=== PATIENT | male | born 1955 | race Caucasian/White ===

== ENCOUNTER 2020-01-31 18:55 | Emergency (ER) | payer MEDICARE, OTHER ==
--- NOTE | 2020-01-31 19:47 | ER Document Report ---
ED Medical Screen (RME) - General Chief Complaint: Medical Clearance Stated Complaint: MEDICAL CLEARANCE/[place] Time Seen by Provider: 01/31/20 19:40 Mode of Arrival: Ambulatory Information source: Patient Notes: HPI; 64-year-old male past medical history significant for depression, anxiety, ADD, bipolar states that he went to [place] via the police to get assistance with his mental health issues. He states while he was there they checked his blood sugar and told him it was high and referred him to the ER. Patient states he had a phone visit with his therapist today who got concerned about some of the things he was talking about and had the police come pick him up and taken to [place]. He denies any suicidal homicidal ideation. States he is never been suicidal in the past. States "I just want to feel better" PE: Alert and oriented x3. Flat affect. Lungs: Clear to auscultation without rales, rhonchi, wheezes. Heart: Regular rate rhythm without murmurs, rubs, gallops. Answers questions appropriately follows directions without any difficulty. Denies suicidal homicidal ideation. I have greeted and performed a rapid initial assessment of this patient. A comprehensive ED assessment and evaluation of the patient, analysis of test results and completion of the medical decision making process will be conducted by additional ED providers. I have specifically instructed the patient or family members with the patient to immediately return to any nursing staff should anything change in the patient's condition or with their chief complaint. TRAVEL OUTSIDE OF THE [place] IN LAST 30 DAYS: No Physical Exam - Vital signs Vitals: Temp Pulse Resp BP Pulse Ox 98.4 F 90 16 123/58 L 95 01/31/20 19:19 01/31/20 19:19 01/31/20 19:19 01/31/20 19:19 01/31/20 19:19 Course - Vital Signs Vital signs: Temp Pulse Resp BP Pulse Ox 98.4 F 90 16 123/58 L 95 01/31/20 19:19 01/31/20 19:19 01/31/20 19:19 01/31/20 19:19 01/31/20 19:19
[2020-01-31] MEDS ORDERED: RINGERS SOLUTION,LACTATED 1,000 ML IV ONE (20:28)
[2020-01-31 20:44] LABS: ABSOLUTE BASOPHILS # (AUTO) 0.1 10^3/uL (0.0-0.2); ABSOLUTE EOSINOPHILS # (AUTO) 0.1 10^3/uL (0.0-0.6); ABSOLUTE LYMPHOCYTES (AUTO) 2.3 10^3/uL (0.5-4.7); ABSOLUTE NEUT (AUTO) 5.9 10^3/uL (1.7-8.2); BASOPHILS % (AUTO) 0.8 % (0-2); EOSINOPHILS % (AUTO) 0.9 % (0-6); HEMATOCRIT 42.2 % (37.9-51.0); HEMOGLOBIN 14.8 g/dL (13.5-17.0); LYMPHOCYTES % (AUTO) 24.8 % (13-45); MEAN CORPUSCULAR HEMOGLOBIN 30.1 pg (27.0-33.4); MEAN CORPUSCULAR HGB CONC 35.1 g/dL (32.0-36.0); MEAN CORPUSCULAR VOLUME 86 fl (80-97); MONOCYTES % (AUTO) 10.5 % (3-13); PLATELET COUNT 282 10^3/uL (150-450); RED BLOOD COUNT 4.92 10^6/uL (4.35-5.55); RED CELL DISTRIBUTION WIDTH 12.6 % (11.5-14.0); TOTAL CELLS COUNTED % (AUTO) 100 %; WHITE BLOOD COUNT 9.4 10^3/uL (4.0-10.5)
[2020-01-31 20:48] LABS: APPEARANCE,URINE CLEAR; BILIRUBIN,URINE NEGATIVE (NEGATIVE); COLOR,URINE YELLOW; GLUCOSE, URINE >=500 mg/dL (NEGATIVE); KETONES,URINE TRACE mg/dL (NEGATIVE); LEUKOCYTE ESTERASE,URINE NEGATIVE (NEGATIVE); NITRITE,URINE NEGATIVE (NEGATIVE); PROTEIN,URINE NEGATIVE (NEGATIVE); URINE SPECIFIC GRAVITY 1.029; UROBILINOGEN,URINE NEGATIVE mg/dL (<2.0)
--- NOTE | 2020-01-31 20:54 | EKG REPORT ---
SEVERITY:- ABNORMAL ECG - SINUS RHYTHM LEFT ANTERIOR FASCICULAR BLOCK : Confirmed by: Xuan Rosenthal 31-Jan-2020 20:53:26
[2020-01-31 21:03] LABS: ALBUMIN 4.4 g/dL (3.5-5.0); ALKALINE PHOSPHATASE 106 U/L (38-126); ANION GAP 9 (5-19); ASPARTATE AMINO TRANSFERASE 27 U/L (17-59); BILIRUBIN,DIRECT 0.3 mg/dL (0.0-0.4); BILIRUBIN,TOTAL 0.6 mg/dL (0.2-1.3); BLOOD UREA NITROGEN 18 mg/dL (7-20); CALCIUM 9.7 mg/dL (8.4-10.2); CARBON DIOXIDE 28 mmol/L (22-30); CHLORIDE 94 mmol/L (98-107); POTASSIUM 4.4 mmol/L (3.6-5.0); TOTAL PROTEIN 7.3 g/dL (6.3-8.2)
[2020-01-31 21:09] LABS: ACETAMINOPHEN < 10 ug/mL (10-30); ALCOHOL < 10 mg/dL (NONE DETECTED); GLUCOSE 417 mg/dL (75-110); SALICYLATE < 1.0 mg/dL (2.0-20.0)
[2020-01-31 21:10] LABS: URINE AMPHETAMINES SCREEN NEGATIVE; URINE BARBITURATES SCREEN NEGATIVE; URINE BENZODIAZEPINES SCREEN NEGATIVE; URINE COCAINE SCREEN NEGATIVE; URINE MARIJUANA (THC) SCREEN NEGATIVE; URINE METHADONE SCREEN NEGATIVE; URINE PHENCYCLIDINE SCREEN NEGATIVE
[2020-01-31 21:34] LABS: VENOUS BLOOD BASE EXCESS 0.8 mmol/L; VENOUS BLOOD HCO3 26.6 mmol/L (20-32); VENOUS BLOOD PCO2 47.1 mmHg (35-63); VENOUS BLOOD PH 7.37 (7.30-7.42)
--- NOTE | 2020-01-31 22:05 | ER Document Report ---
ED General - General Chief Complaint: High Blood Sugar Stated Complaint: MEDICAL CLEARANCE/LAUREN Time Seen by Provider: 01/31/20 19:40 Mode of Arrival: Ambulatory Information source: Patient Notes: ED Medical Screen ([facility]) - General Chief Complaint: Medical Clearance Stated Complaint: MEDICAL CLEARANCE/LAUREN Time Seen by Provider: 01/31/20 19:40 Mode of Arrival: Ambulatory Information source: Patient Notes: HPI; 64-year-old male past medical history significant for depression, anxiety, ADD, bipolar states that he went to [place] via the police to get assistance with his mental health issues. He states while he was there they checked his blood sugar and told him it was high and referred him to the ER. Patient states he had a phone visit with his therapist today who got concerned about some of the things he was talking about and had the police come pick him up and taken to [place]. He denies any suicidal homicidal ideation. States he is never been suicidal in the past. States "I just want to feel better" PE: Alert and oriented x3. Flat affect. Lungs: Clear to auscultation without rales, rhonchi, wheezes. Heart: Regular rate rhythm without murmurs, rubs, gallops. Answers questions appropriately follows directions without any difficulty. Denies suicidal homicidal ideation. MY NOTES 64-year-old male arrives with chief complaint of high blood sugar and mental health issues. 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 He advises for years he was on Adderall Klonopin and SSRIs. This was until Karen Quezada took him off of these particular medications several months ago and now his life has felt very nonproductive. He was told around 6 months ago he was prediabetic and therefore has been drinking a lot of Coca-Cola's and his sugars were found to be in the mid 400s today. He denies any chest pain denies any suicidal or homicidal ideation. Patient reports he has no purpose in life. He says his life is on a downward spiral. Patient reports his teeth were worked on by a local dentist but was told he should have many of them pulled out. He was placed on amoxicillin several weeks ago. Patient reports the Klonopin he used to take was 1 mg 3 times daily for 10 years. TRAVEL OUTSIDE OF THE [place] IN LAST 30 DAYS: No - HPI Onset: This afternoon Onset/Duration: Persistent Quality of pain: No pain Severity: None Pain Level: Denies Associated symptoms: Weakness, Other - Polyuria and intensive thirst for weeks Exacerbated by: Denies Relieved by: Denies Similar symptoms previously: No Recently seen / treated by doctor: No - Related Data Allergies/Adverse Reactions: peanut Allergy (Verified 01/31/20 19:48) Past Medical History - General Information source: Patient - Social History Smoking Status: Former Smoker Cigarette use (# per day): No Chew tobacco use (# tins/day): No Smoking Education Provided: No Frequency of alcohol use: None Drug Abuse: None Lives with: Family Family History: Reviewed & Not Pertinent Patient has suicidal ideation: No Patient has homicidal ideation: No Review of Systems - Review of Systems Constitutional: See HPI, Malaise, Weakness, Recent illness EENT: See HPI, Other - dry mouth Cardiovascular: No symptoms reported Respiratory: No symptoms reported Gastrointestinal: No symptoms reported Genitourinary: See HPI, Frequency Male Genitourinary: No symptoms reported Musculoskeletal: No symptoms reported Skin: No symptoms reported Hematologic/Lymphatic: No symptoms reported Neurological/Psychological: See HPI, Depression Physical Exam - Vital signs Vitals: Temp Pulse Resp BP Pulse Ox 98.4 F 90 16 123/58 L 95 01/31/20 19:19 01/31/20 19:19 01/31/20 19:19 01/31/20 19:19 01/31/20 19:19 Interpretation: Normal - General General appearance: Alert - HEENT Head: Normocephalic, Atraumatic Eyes: Pale conjunctiva Conjunctiva: Normal Cornea: Normal Extraocular movements intact: Yes Eyelashes: Normal Pupils: PERRL Sinus: Normal Nasal: Normal Mouth/Lips: Normal Mucous membranes: Dry Pharynx: Normal Neck: Normal - Respiratory Respiratory status: No respiratory distress Chest status: Nontender Breath sounds: Normal Chest palpation: Normal - Cardiovascular Rhythm: Regular Heart sounds: Normal auscultation Murmur: No - Abdominal Inspection: Normal Distension: No distension Bowel sounds: Normal Tenderness: Nontender Organomegaly: No organomegaly - Rectal Prostate: Other - deferred - Genitourinary Scrotum: Other - deferred - Back Back: Normal - Extremities General upper extremity: Normal inspection General lower extremity: Normal inspection - Neurological Neuro grossly intact: Yes Cognition: Normal Orientation: AAOx4 [place] Coma Scale Eye Opening: Spontaneous [place] Coma Scale Verbal: Oriented [place] Coma Scale Motor: Obeys Commands [place] Coma Scale Total: 15 Speech: Normal Motor strength normal: LUE, RUE, LLE, RLE Sensory: Normal - Psychological Associated symptoms: Normal affect - Skin Skin Temperature: Warm Skin Moisture: Dry Course - Vital Signs Vital signs: Temp Pulse Resp BP Pulse Ox 98.4 F 90 19 133/53 H 94 01/31/20 19:19 01/31/20 19:19 02/01/20 00:27 02/01/20 00:28 02/01/20 00:28 - Laboratory Result Diagrams: 01/31/20 20:09 01/31/20 20:09 Laboratory results interpreted by me: 01/31/20 01/31/20 01/31/20 20:01 20:09 20:09 Sodium 131.2 L Chloride 94 L Glucose 417 H* POC Glucose 412 H* Urine Glucose (UA) >=500 H Urine Ketones TRACE H Salicylates < 1.0 L Acetaminophen < 10 L 01/31/20 01/31/20 01/31/20 21:30 22:34 23:59 Sodium Chloride Glucose POC Glucose 380 H 347 H 291 H Urine Glucose (UA) Urine Ketones Salicylates Acetaminophen - EKG Interpretation by Me EKG shows normal: Sinus rhythm Rate: Normal - With [address] elevation no ST depression no T wave elevation no T wave depression and left anterior fascicular block and this was read by me. Rhythm: NSR Discharge - Discharge Clinical Impression: Hyperglycemia, Poor dentition Depression Qualifiers: Depression Type: dysthymia Qualified Code(s): F34.1 - Dysthymic disorder Condition: Good Disposition: HOME, SELF-CARE Additional Instructions: Follow-up with Lauren for your mental fatigue/ depression and take medications for diabetes and for dental problems. Try to adhere to a low calorie diet if possible and increased vegetable use if possible. Try to avoid sandy or carbonated soft drinks in general. Increase water use. Prescriptions: Glipizide [Glipizide Xl] 10 mg PO DAILY #30 tab.[id number] Cephalexin Monohydrate [Keflex 500 mg Capsule] 500 mg PO BID 5 Days #20 capsule
[2020-01-31] MEDS ORDERED: INSULIN REG, HUMAN 100 UNIT/ML 3 ML VIAL (PYX) IV ONE (22:08)
[2020-01-31] MEDS ORDERED: CLONAZEPAM 1 MG TABLET PO ONE (22:31)
[2020-01-31] MEDS ORDERED: NORMAL SALINE 1000 ML 1,000 ML IV ONE (23:05)
[2020-01-31] MEDS ORDERED: GLIPIZIDE 5 MG TABLET PO ONE (23:10)
[2020-02-01 00:31] VITALS: BP 133/53
== END 2020-02-01 00:39 | disposition home or self-care (01) ==
LOC: ER 18:55
DX: R73.9 Hyperglycemia, unspecified (principal); F34.1 Dysthymic disorder; K08.89 Other specified disorders of teeth and supporting structures; F32.9 Major depressive disorder, single episode, unspecified; F41.9 Anxiety disorder, unspecified; F98.8 Other specified behavioral and emotional disorders with onset usually occurring in childhood and adolescence; F31.9 Bipolar disorder, unspecified
CPT/HCPCS: 93005; 99284; 96360; 96361; 36415; 82962; 80307 ×4; 85025; 80053; 81001; 82803; 93010; A9270 ×2; J7030; J7120